=== PATIENT | female | born 1990 | race African-American/Black ===

== ENCOUNTER 2021-09-28 14:41 | Observation (INO) | payer OTHER ==
[2021-09-28] MEDS ORDERED: Aspirin 81 MG Tab.EC PO ONE (16:12)
[2021-09-28] MEDS ORDERED: Sodium Chloride 0.9% 1,000 ML IV ONE (16:43)
[2021-09-28] MEDS ORDERED: Sodium Chloride 0.9% 10 ML Syringe FLUSH PRN (16:43)
== END 2021-09-28 20:27 ==
LOC: JP.OBCHECK 14:41 → JP.OB 14:41 → JP.OBCHECK 17:19 → JP.OB 17:20
PROVIDERS: ADMIT Nurse Practitioner Family; ATTEND Nurse Practitioner Family
DX: O36.8120 Decreased fetal movements, second trimester, not applicable or unspecified (principal); O99.112 Other diseases of the blood and blood-forming organs and certain disorders involving the immune mechanism complicating pregnancy, second trimester; O16.2 Unspecified maternal hypertension, second trimester; D69.6 Thrombocytopenia, unspecified; Z3A.21 21 weeks gestation of pregnancy; Z93.3 Colostomy status
CPT/HCPCS: 36415; 80053; 81001; 82150; 82570; 83615; 83690; 83735; 84156; 84550; 85025; 86850; 86900; 86901; 99211; A9270-GY; G0378; J7030

== ENCOUNTER 2022-06-29 20:17 | Emergency (ER) | payer OTHER ==
[2022-06-29 22:15] LABS: ESTIMATED GFR 78 mL/min (>60)
[2022-06-29] MEDS ORDERED: Ondansetron 4 MG Tab.DIS PO ONE (22:27)
[2022-06-29] MEDS ORDERED: Ketorolac 30 MG/ML SDV IM ONE (22:27)
== END 2022-06-29 22:43 ==
LOC: JP.ED 20:17
DX: K62.5 Hemorrhage of anus and rectum (principal); K92.0 Hematemesis; F17.210 Nicotine dependence, cigarettes, uncomplicated; Z90.49 Acquired absence of other specified parts of digestive tract
CPT/HCPCS: 36415; 80053; 82272; 83605; 85025; 96372; 99283; J1885; Q0162